=== PATIENT | male | born 1955 | race Caucasian/White ===

== ENCOUNTER 2017-10-03 16:31 | Emergency (ER) | payer MEDICARE ==
[~2017-10-03] VITALS: Ht 190.5 cm; Wt 95.3 kg
[~2017-10-03 16:31] MED LIST: ALPRAZOLAM; AZITHROMYCIN; CLONAZEPAM 1 MG1 M1; COREG; DEPAKOTE ER250 MG PO; GLUCOPHAGE1000 MG PO; HYDROCODONE-APA1 TA1 PO; LIPITOR10 MG PO; LISINOPRIL40 MG PO; NAPROXEN 500MG500 M1 PO; NEXIUM40 MG PO; NIASPAN ER 101000 M1 PO; NORCO 5-325 TA1 EACH PO; RESTORIL30 MG PO; SEROQUEL200 MG PO; SINGULAIR 10 MG10 M1 PO; SYNTHROID 0.10.1 M1 PG; TRICOR145 MG PO; WELLBUTRIN SR150 MG PO
[2017-10-03] MEDS ORDERED: HYDROCHLOROTH12.5 M1 PO (16:46)
[2017-10-03] MEDS ORDERED: AMITIZA8 MCG PO (16:46)
[2017-10-03 17:03] LABS: URINE BILIRUBIN NEGATIVE (Negative); URINE BLOOD NEGATIVE (Negative); URINE CLARITY CLEAR; URINE COLOR YELLOW; URINE GLUCOSE-RANDOM NEGATIVE (Negative); URINE KETONES NEGATIVE (Negative); URINE LEUKOCYTES-REFLEX NEGATIVE (Negative); URINE NITRITE-REFLEX NEGATIVE (Negative); URINE PROTEIN NEGATIVE (Negative)
[2017-10-03 17:07] LABS: ABSOLUTE BASOPHILS 0.1 thou/uL (0.0-0.2); ABSOLUTE EOSINOPHILS 0.4 thou/uL (0.0-0.7); ABSOLUTE MONOCYTES 0.6 thou/uL (0.0-1.2); ABSOLUTE NEUTROPHILS 8.5 thou/uL (1.6-8.1); BASOPHILS 0.5 %; EOSINOPHILS 3.3 %; HEMATOCRIT 35.6 % (42.0-52.0); HEMOGLOBIN 11.9 gm/dL (14.0-18.0); LYMPHOCYTES 17.1 %; MCH 28.8 pg (26.0-34.0); MCHC 33.4 g/dL (28.0-37.0); MCV 86.2 fL (80.0-100.0); MPV 7.5 fl. (7.2-11.1); NUCLEATED RBCS 0 /100WBC; PLATELET COUNT* 328 thou/uL (150-400); POLYS 74.1 %; RBC 4.13 mil/uL (4.50-6.00); RDW-CV 15.7 % (10.5-14.5); WBC 11.5 thou/uL (4.0-11.0)
[2017-10-03 17:15] LABS: CALCIUM 9.3 mg/dL (8.5-10.1); POTASSIUM 3.6 mmol/L (3.5-5.1)
[2017-10-03 17:19] LABS: ALBUMIN 3.5 g/dL (3.4-5.0); TOTAL BILIRUBIN 0.5 mg/dL (<0.1-1.0); TOTAL PROTEIN 7.4 g/dL (6.4-8.2)
[2017-10-03] MEDS ORDERED: SENEXON-S TABL1 EACH PO (18:51)
[2017-10-03 19:05] VITALS: BP 147/68
== END 2017-10-03 19:05 | disposition home or self-care (01) ==
LOC: M.ERS 16:31
PROVIDERS: Nurse Practitioner
DX: K59.00 Constipation, unspecified (principal); J44.9 Chronic obstructive pulmonary disease, unspecified; E78.00 Pure hypercholesterolemia, unspecified; Z88.5 Allergy status to narcotic agent; Z88.8 Allergy status to other drugs, medicaments and biological substances